=== PATIENT | male | born 1960 | race Caucasian/White ===

== ENCOUNTER 2024-09-06 07:00 | Day surgery (SDC) | payer MEDICAID, SELFPAY ==
[2024-09-05 10:20] VITALS: BMI 34.4
--- NOTE | 2024-09-05 12:15 | ESHP_ITS ---
RE: MAYRA BAKER : 1960 DATE OF ADMISSION: 09/06/2024 DATE OF SURGERY: 09/06/2024 HISTORY OF PRESENT ILLNESS: This patient is a 64-year-old man who was seen because of gallstones. The patient was seen in the [facility]. He was in his usual health until the past 3-4 months when he had recurrent upper abdominal pain in the epigastric region as well as over the right upper quadrant. The patient had 1-2 episodes of vomiting. Pain is not severe enough to go to the emergency room. The pain comes randomly and is not related necessarily to the fatty food intake. The patient has a history of diabetes, which is under control. Other medical problem consists of hypertension. The patient has a history of scoliosis that makes him walk with a slight limp and he is receiving steroid injections and tramadol for the control of pain. 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 HOME MEDICATIONS: 1. Tramadol hydrochloride 50 mg tablets once daily. 2. Loperamide 2 mg capsules as needed p.o. 4 times daily. 3. Albuterol sulfate HFA 1 puff as needed for inhalation every 4 hours. 4. Terazosin hydrochloride 5 mg capsule at bedtime. 5. Spiriva Respimat. 6. Baclofen. 7. Trazodone 50 mg tablets at bedtime. 8. Losartan potassium with hydrochlorothiazide. PHYSICAL EXAMINATION: GENERAL: A 64-year-old man who is about 5 feet 10 inches tall, weighing 246 pounds. BMI is 35.2. VITAL SIGNS: Temperature is 98.4. Pulse 80. BP is 110/65 mmHg. HEENT: Head is normal. Eyes, ears, nose, and throat were normal. No jaundice noted. Ears normal. Throat was normal. CHEST: Lungs revealed good breath sounds on both sides. HEART: Regular sinus rhythm with no additional heart sounds. ABDOMEN: Showed some tenderness in the right upper quadrant on deep palpation. EXTREMITIES: Exam of the back was within normal limits other than scoliosis, which is affecting his gait. IMAGING: Ultrasound done at [facility] showed gallstone measuring 2 cm in the gallbladder largely in the neck. The bile duct is normal measuring 4 mm in size. IMPRESSION: 1. Symptomatic cholelithiasis. 2. Essential hypertension. 3. Diabetes mellitus. 4. Scoliosis. COURSE OF ACTION: Because of the recurrent abdominal pain, I advised the patient to undergo laparoscopic cholecystectomy. The risks of the procedure were explained to him including the bile duct injury that may necessitate further surgery. The patient is agreeable and the procedure is scheduled on 09/06/2024. DT: 11:39:15 TT: 12:07:00 Ref: [id number] - TID: [id number]
[2024-09-05 12:20] LABS: Basophils # (Auto) 0.1 Thou/mm3 (0.0-0.2); Basophils % (Auto) 1 % (0-2.5); Eosinophils # (Auto) 0.1 Thou/mm3 (0.0-0.5); Eosinophils % (Auto) 1 % (0-10); Hemoglobin 14.3 g/dL (13.5-16.0); Immature Granulocytes % (Auto) 0 % (0-0); Immature Granulocytes Auto 0.02 Thou/mm3 (0.00-0.00); Lymphocytes # (Auto) 1.9 Thou/mm3 (1.0-4.8); Lymphocytes % (Auto) 23 % (10-50); Mean Corpuscular Hemoglobin 30.6 pg (25.0-35.0); Mean Corpuscular Volume 90 fL (80-100); Monocytes # (Auto) 0.5 Thou/mm3 (0.0-0.8); Monocytes % (Auto) 6 % (0-12); Neutrophils # (Auto) 5.8 Thou/mm3 (1.8-7.7); Neutrophils % (Auto) 69 % (37-80); Nucleated Red Blood Cell % 0 /100 WBC (0); Platelet Count 189 Thou/mm3 (140-440); RDW Standard Deviation 47.6 fL (35.1-43.9); Red Blood Count 4.68 Miln/mm3 (4.50-5.90); White Blood Count 8.4 Thou/mm3 (3.8-10.6)
[2024-09-05 12:29] LABS: Partial Thromboplastin Time 41.4 Seconds (22.0-36.0); Prothrombin Time 10.9 Seconds (9.0-12.2)
[2024-09-05 12:32] LABS: Alanine Aminotransferase 21 U/L (10-49); Albumin, Serum 4.4 gm/dL (3.4-4.8); Albumin/Globulin Ratio 1.9 (1.2-2.2); Alkaline Phosphatase 76 U/L (46-116); Anion Gap 12 (7-16); BUN/Creatinine Ratio 12 Ratio (12-20); Bilirubin,Total 0.4 mg/dL (0.3-1.2); Blood Urea Nitrogen 16 mg/dL (9-23); Calcium 9.9 mg/dL (8.3-10.6); Calcium (Corrected) 9.9 mg/dL (8.5-10.1); Carbon Dioxide 27.2 mMol/L (20.0-31.0); Chloride 98 mMol/L (98-107); Creatinine (Component) 1.3 mg/dL (0.6-1.3); Estimated Creatinine Clearance 70.9 mL/min (>60); Globulin 2.3 gm/dL (2.3-3.5); Glucose 116 mg/dL (74-106); Osmolality,Calculated 276 (275-295); Potassium 3.7 mMol/L (3.4-5.1); Sodium 137 mMol/L (136-145); Total Protein 6.7 gm/dL (5.7-8.2); eGFR > 60 See Note
[2024-09-06] VITALS (8 sets, daily range): BP systolic 102–127; BP diastolic 60–76; PULSE 69–75; RESP 16–20; TEMP 36.3–36.6; O2SAT 95–99; BMI 34.0
[2024-09-06] MEDS: RINGERS LACTATED 1000 ML 1,000 ML 20 ML IV (07:53)
--- NOTE | 2024-09-06 08:30 | CHAP ---
Visited briefly with patient and had prayer.
--- NOTE | 2024-09-06 12:03 | ESOP_ITS ---
Date of Procedure 09/06/24 Pre Op Diagnosis Symptomatic cholelithiasis with a stone in the neck of the gallbladder Post Op Diagnosis Same with hydrops of the gallbladder Procedure Laparoscopic cholecystectomy Findings Patient was found to have 2 cm stone impacted at the neck of the gallbladder causing colorless bile and distention of the gallbladder due to chronic inflammation. Procedure Description After endotracheal anesthesia was given the patient was placed in supine position and the abdomen was prepped with chloroprep solution and draped in a sterile manner. After time out was performed I injected a few cc of of half percent Marcaine with epinephrine below the umbilicus and I made an incision for about 3 cm in length. The fascia was cleaned and Veress needle was inserted to create a pneumoperitoneum up to 15 mmHg. Then introduced a 12 mm trocar and a 10 mm camera through the fascia and I inspected the intra-abdominal organs as well as the gallbladder and the liver. Another 5 mm trocar was inserted in the epigastric region under direct vision after injecting some local anesthesia. At this time the patient was kept in reverse Trendelenburg position with the left lateral tilt. The gallbladder was found to be very distended and could not be grasped with any instrument. Therefore I decompressed it with the needle and obtained about 50 to 60 cc of colorless fluid suggesting it is a hydrops of the gallbladder. The third 5 mm trocar was inserted over the mid axillary line under direct vision and a Rolan and Gejn grasper was used to hold the fundus of the gallbladder. The retraction was carried out by the assistant brand manager moving the fundus of the gallbladder towards the right shoulder of the patient to create enough traction. I placed a another 5 mm trocar in the midaxillary line just lateral to the rectus muscle under direct vision. I used a fenestrated grasper to retract the neck of the gallbladder laterally towards the patient's right hip. The Calot's triangle was exposed and I achieved the critical view of safety as follows: I dissected out the fatty tissue from the hepatocystic triangle and cleared this area. I also dissected inferior and posterior to the gallbladder to identify the cystic duct and the gallbladder wall. Then superiorly I dissected along the cystic plate up to lower one third third of the gallbladder to lift the gallbladder from the liver. At this time I confirmed that only 2 structures entering the gallbladder were cystic artery and the cystic duct. The common duct was seen distally but no dissection was carried out around the duct. I did not see any need for operative cholangiogram in this patient. The cystic duct was clipped doubly and then divided and cystic artery was similarly dealt with. Then the gallbladder was removed from the liver bed using Harmonic yobany to control the small blood vessels as the dissection proceeded. Then the gallbladder was from the liver bed completely and delivered through the umbilical port using an Endopouch. The liver bed was coagulated with cautery to obtain satisfactory hemostasis. The trocars were pulled out from the abdominal cavity and the fascia at the umbilical incision was closed with interrupted 0 Ethibond. Subcutaneous tissues was closed with 3- 0 chromic and injected a few cc of half percent Marcaine with epinephrine and the skin was closed with interrupted 4-0 nylon stitches at all the trocar sites. Dressing was applied with 2 x 2 and Tegaderm. Patient tolerated the procedure well and returned to recovery room in stable condition. Anesthesia GETA Pathology / specimen Other (Gallbladder and the single stone) IVF Infused 1,000 Estimated Blood Loss 30 Condition Stable Disposition PACU Surgeon Marcos Glynn MD Surgical Staff Operation Date: 09/06/24 09:15 Case Staff Anesthesiologist: Chaim Brasher RN First Assistant: Lluvia Logan
--- NOTE | 2024-09-06 12:07 | SUR.PHASEI ---
1207: Pt. AAOx4, vitals stable, breathing unlabored, no complaint of pain or nausea, x4 dressing to ABD CDI, no active bleed noted, report received from MD Brasher and Abi SINGH.
[2024-09-06] MEDS: ONDANSETRON INJ 2 MG/ML INJ 2 ML 4 MG IVP (12:29)
[2024-09-06] MEDS: HYDROmorphone INJ 2 MG/ML VIAL 0.4 MG IVP ×2 (12:31→12:38)
[2024-09-06] MEDS: ACETAMINOPHEN IVPB 1,000 MG/100 ML VIAL 250 MG IV (12:36)
--- NOTE | 2024-09-06 13:20 | SUR.PHASEII ---
1320: Pt. AAOx4, vitals stable, breasthing unlabored, no complaint of pain or nausea, x4 dressing to ABD CDI, no active bleed noted, pt. tolerated sips of soda well, pt. ambulated to wheelchair with steady gait and no assist, no complications. Gave discharge instructions to the pt. and his ride, both verbalized understanding and had no further questions. Pt. left with all personal belongings.
== END 2024-09-06 13:20 | disposition home or self-care (01) ==
PROVIDERS: PCP Physician Assistant; Referring Provider Surgery; Visit Provider Surgery
PROC: 0FT44ZZ Resection of Gallbladder, Percutaneous Endoscopic Approach (ICD-10-PCS; CPT 47562; principal; 2024-09-06 09:15)
DX: K80.10 Calculus of gallbladder with chronic cholecystitis without obstruction (principal); E11.9 Type 2 diabetes mellitus without complications; I10 Essential (primary) hypertension; K82.1 Hydrops of gallbladder; M41.9 Scoliosis, unspecified; Z01.810 Encounter for preprocedural cardiovascular examination
CPT/HCPCS: 47562; 36415; 80053; 85025; 85610; 85730; A4217; A4649; J0131; J1100; J1171; J1885; J2250; J2405; J2704; J3010; J3490; J7120

== ENCOUNTER → 2024-12-14 | Outpatient (CLI) | payer MEDICAID, SELFPAY ==
--- NOTE | 2024-12-14 16:19 | RESP.EEG ---
EEg complete and ready to read
== END | disposition home or self-care (01) ==
LOC: SRTX 14:15
PROVIDERS: Referring Provider Psychiatry & Neurology Neurology; Visit Provider Psychiatry & Neurology Neurology
DX: R94.01 Abnormal electroencephalogram [EEG] (principal)
CPT/HCPCS: 95816